=== PATIENT | male | born 1985 | race Caucasian/White ===

== ENCOUNTER 2023-09-16 22:01 | Emergency (ER) | payer OTHER, SELFPAY ==
[2023-09-16 22:04] VITALS: TEMP 36.5
[2023-09-16 23:15] LABS: Basophils Absolute Auto 0.1 K/mm3 (0.0-0.1); Basophils Percent Auto 0.7 % (0.2-1.2); Eosinophils Absolute Auto 0.2 K/mm3 (0-0.3); Eosinophils Percent Auto 2.8 % (0-4.4); Hematocrit 41.3 % (42.0-52.0); Hemoglobin 13.7 g/dL (14.0-18.0); Immature Granulocyte Absolute 0.04 K/mm3 (0.00-0.031); Immature Granulocyte Percent A 0.6 % (0-0.5); Lymphocytes Absolute Auto 2.34 K/mm3 (0.9-3.2); Lymphocytes Percent Auto 34.5 % (18.3-44.2); Mean Corpuscular HGB Conc 33.2 g/dl (32-36); Mean Corpuscular Volume 87.3 fl (80-100); Mean Platelet Volume 11.4 fl (7.4-10.4); Monocytes Absolute Auto 0.9 K/mm3 (0.1-0.6); Neutrophils Absolute Auto 3.3 K/mm3 (1.3-6.7); Neutrophils Percent Auto 48.4 % (45.5-73.1); Platelet Count Result 274 k/mm3 (150-375); Red Blood Count 4.73 M/mm3 (4.6-6.20); Red Cell Distribution Width 12.5 % (11.5-14.5); White Blood Count 6.8 K/mm3 (4.5-10.0)
[2023-09-16 23:25] LABS: Appearance Urine Clear (Clear); Bacteria Urine None Seen /hpf; Bilirubin Urine 1+ (Negative); Blood Urine Negative (Negative); Color Urine Dark Yellow (Yellow); Glucose Urine UA Negative (Negative); Ketones Urine Trace mg/dL (Negative); Leukocyte Esterase Ur Negative LEU/UL (Negative); Nitrate Urine Negative (Negative); Non Pathogenic Casts 0-2; Protein Urine Trace mg/dL (Negative); RBC Urine 0-2 /hpf (0-2); Specific Grav Ur 1.033 (1.001-1.035); Squamous Epithelial Cell Urine None seen /hpf (Few); WBC Urine 0-5 /hpf
[2023-09-16 23:27] LABS: Add Urine Microscopic? YES
--- NOTE | 2023-09-16 23:30 | PC.NURSE ---
Patient resting on bed with eyes closed, visible chest rise and fall noted.
[2023-09-16 23:33] LABS: Alanine Aminotransferase 33 U/L (6-50); Albumin Level 4.3 g/dL (3.5-5.1); Alkaline Phosphatase 87 U/L (38-126); Anion Gap 5 mmol/L (8-16); Aspartate Amino Transferase 41 U/L (17-59); Bilirubin,Total 0.7 mg/dL (0.2-1.3); Blood Urea Nitrogen 23 mg/dL (9-20); Calcium 9.4 mg/dL (8.4-10.2); Carbon Dioxide 26 mmol/L (22-30); Chloride 106 mmol/L (98-107); Estimated CRCL calculation 109 ml/min; Estimated Glomerular Filt Rate > 60; Glucose 131 mg/dL (65-110); Potassium 3.8 mmol/L (3.4-5.0); Sodium 137 mmol/L (137-145)
[2023-09-16 23:34] LABS: Ethanol < 10 mg/dL (<10)
[2023-09-16 23:41] LABS: Barbiturate Screen Urine Negative (Negative); Benzodiazepines Screen Urine Negative (Negative)
[2023-09-16 23:51] LABS: Influenza A QL RT-PCR Negative (Negative); Influenza B QL RT-PCR Negative (Negative); RSV RNA, RT-PCR Negative (Negative); SARS-CoV-2 RNA PCR Negative (Negative)
--- NOTE | 2023-09-16 23:56 | PC.NURSE ---
call placed to [facility]. left message
[2023-09-17 00:01] LABS: Amphetamine Screen Urine Positive (Negative); Cannabinoid Screen Urine Positive (Negative); Cocaine Screen Urine Negative (Negative); Methadone Screen Urine Negative (Negative); Opiate Screen Urine Negative (Negative); Phencyclidine Screen Urine Negative (Negative)
--- NOTE | 2023-09-17 00:27 | ED.GENADULT ---
HPI - General Adult General Chief complaint: Psychiatric Symptoms <Petr Yanez MD - Last Filed: 09/17/23 00:33> Stated complaint: i dont feel safe / people following me <Petr Yanez MD - Last Filed: 09/17/23 00:33> Time Seen by Provider: 09/16/23 22:52 <Petr Yanez MD - Last Filed: 09/17/23 00:33> History of Present Illness HPI narrative: Patient 38-year-old gentleman who presents emergency department with chief complaint of psychiatric complaints. The patient states that he feels as though g 1 0 following him the patient does report that he has used meth in the last 24 hours the patient reports that the symptoms are not improved by anything and nor they worsened by anything. Patient does report that he has had thoughts of harming himself but does not have a specific plan at this time but states he would figure out something <Petr Yanez MD - Last Filed: 09/17/23 00:33> Related Data Home medications: Home Medications Medication Instructions Recorded Confirmed buprenorphine 8 mg-naloxone 2 mg tablet sublingual 09/16/23 sublingual tablet haloperidol 5 mg tablet mg 09/16/23 mirtazapine 30 mg tablet mg 09/16/23 modafinil 200 mg tablet mg 09/16/23 <Petr Yanez MD - Last Filed: 09/17/23 00:33> Allergies/adverse reactions: Allergies Allergy/AdvReac Type Severity Reaction Status Date / Time Penicillins Allergy Unknown Other Verified 09/16/23 22:28 <Petr Yanez MD - Last Filed: 09/17/23 00:33> Review of Systems Review of Systems: A 10 system review of systems was completed on the patient and is negative except for what is stated in the HPI. Nursing and ancillary documentation was reviewed. <Petr Yanez MD - Last Filed: 09/17/23 00:33> FOR[facility]LY [facility] Social History Social History: Social History Substance use type: heroin and amphetamines <Petr Yanez MD - Last Filed: 09/17/23 00:33> Exam Narrative: GENERAL: Well-appearing, well-nourished, and in no acute distress. HEAD: Normocephalic, atraumatic. EYES: PERRLA and EOMI. ENT: Nares clear, no rhinorrhea or epistaxis. Mucous membranes moist. NECK: Supple. CHEST: Clear to auscultation. No respiratory distress. HEART: Regular rate and rhythm. No murmur heard. Normal peripheral pulses. ABDOMEN: Soft, nontender, nondistended, normal active bowel sounds. EXTREMITIES: Normal range of motion. No edema. SKIN: Warm, dry, no rash. NEURO: No focal deficits. Alert and oriented x3. PSYCH: Anxious mood and affect. <Petr Yanez MD - Last Filed: 09/17/23 00:33> Course Course Emergency Course: The patient is admitted to [facility] for psychiatric care. Resting comfortably and eating during my care. <Thor Mercer MD - Last Filed: 09/17/23 09:00> Vital Signs Vital signs: Vital Signs Temperature 97.7 F 09/16/23 22:04 Temperature 97.6 F 09/17/23 07:57 Pulse Rate 86 09/17/23 07:57 Respiratory Rate 19 09/17/23 07:57 Blood Pressure 104/70 09/17/23 07:57 Pulse Oximetry 99 09/17/23 07:57 <Petr Yanez MD - Last Filed: 09/17/23 00:33> Vital Signs Temperature 97.7 F 09/16/23 22:04 Temperature 97.6 F 09/17/23 07:57 Pulse Rate 86 09/17/23 07:57 Respiratory Rate 19 09/17/23 07:57 Blood Pressure 104/70 09/17/23 07:57 Pulse Oximetry 99 09/17/23 07:57 <Thor Mercer MD - Last Filed: 09/17/23 09:00> Medical Decision Making [facility] Narrative Medical decision making narrative: Differential diagnosis includes electrolyte abnormality, psychiatric issues substance induced mood disorder, methamphetamine abuse Patient's drug screen was positive for amphetamines and cannabinoids electrolytes are within normal limits CBCs within normal limits COVID flu and RSV
[2023-09-17 00:39] VITALS: BP 99/57; PULSE 62; RESP 16; TEMP 36.3; O2SAT 100
--- NOTE | 2023-09-17 04:24 | PC.NURSE ---
[id number] Shelia from [facility] calls to get information on patient for possible placement. She requests chart to be sent to [phone].
--- NOTE | 2023-09-17 04:30 | PC.NURSE ---
Patients chart faxed to Shelia at [facility] at [phone].
[2023-09-17 07:57] VITALS: BP 104/70; PULSE 86; RESP 19; TEMP 36.4; O2SAT 99
--- NOTE | 2023-09-17 09:18 | PC.NURSE ---
Pt admit to [facility], accepting doctor is dr. Qureshi and room # 1456, report called to Tori LILLY.
[2023-09-17 11:33] VITALS: BP 102/74; PULSE 82; RESP 17; TEMP 36.6; O2SAT 100
== END 2023-09-17 11:35 ==
PROVIDERS: Emergency Medicine; Emergency Provider Emergency Medicine
DX: F29 Unspecified psychosis not due to a substance or known physiological condition (principal); F15.10 Other stimulant abuse, uncomplicated; Z11.52 Encounter for screening for COVID-19
CPT/HCPCS: 36415; 80053; 80307; 81001; 84443; 85025; 87637; 99285

== ENCOUNTER 2023-10-24 22:59 | Emergency (ER) | payer OTHER, SELFPAY ==
[2023-10-24 23:03] VITALS: BP 146/84; PULSE 123; RESP 20; TEMP 36.9; O2SAT 96
--- NOTE | 2023-10-24 23:45 | ECG_ITS ---
Measurements Intervals [place] Rate: 109 P: 52 CO: 151 QRS: 42 QRSD: 70 T: 27 QT: 303 AVG RR 549 QTc: 367 QTcB 408 QTcF 370 Interpretive Statements SINUS TACHYCARDIA NONSPECIFIC ST & T-WAVE ABNORMALITY ABNORMAL RHYTHM ECG SEE SCANNED COPY FOR SIGNATURE MTDD
[2023-10-25] LABS: Basophils Percent Auto 0.4 % (0.2-1.2); Eosinophils Absolute Auto 0.2 K/mm3 (0-0.3); Eosinophils Percent Auto 1.6 % (0-4.4); Hematocrit 44.4 % (42.0-52.0); Hemoglobin 14.7 g/dL (14.0-18.0); Immature Granulocyte Absolute 0.09 K/mm3 (0.00-0.031); Immature Granulocyte Percent A 0.9 % (0-0.5); Lymphocytes Absolute Auto 2.04 K/mm3 (0.9-3.2); Lymphocytes Percent Auto 21.2 % (18.3-44.2); Mean Corpuscular HGB Conc 33.1 g/dl (32-36); Mean Corpuscular Hemoglobin 29.2 pg (26-34); Mean Corpuscular Volume 88.3 fl (80-100); Mean Platelet Volume 10.9 fl (7.4-10.4); Monocytes Absolute Auto 0.6 K/mm3 (0.1-0.6); Monocytes Percent Auto 6.7 % (2.6-8.5); Neutrophils Absolute Auto 6.7 K/mm3 (1.3-6.7); Neutrophils Percent Auto 69.2 % (45.5-73.1); Platelet Count Result 251 k/mm3 (150-375); Red Blood Count 5.03 M/mm3 (4.6-6.20); Red Cell Distribution Width 13.5 % (11.5-14.5); White Blood Count 9.6 K/mm3 (4.5-10.0)
[2023-10-25 00:11] LABS: Ethanol < 10 mg/dL (<10)
[2023-10-25 00:12] LABS: Alanine Aminotransferase 70 U/L (6-50); Albumin Level 4.9 g/dL (3.5-5.1); Alkaline Phosphatase 71 U/L (38-126); Anion Gap 8 mmol/L (4-12); Aspartate Amino Transferase 43 U/L (17-59); Bilirubin,Total 0.8 mg/dL (0.2-1.3); Blood Urea Nitrogen 16 mg/dL (9-20); Calcium 9.7 mg/dL (8.4-10.2); Carbon Dioxide 26 mmol/L (22-30); Chloride 104 mmol/L (98-107); Estimated CRCL calculation 109 ml/min; Estimated Glomerular Filt Rate > 60; Glucose 105 mg/dL (65-110); Potassium 4.5 mmol/L (3.4-5.0); Sodium 138 mmol/L (137-145)
[2023-10-25 00:13] LABS: Appearance Urine Clear (Clear); Bilirubin Urine Negative (Negative); Blood Urine Negative (Negative); Color Urine Yellow (Yellow); Glucose Urine UA Negative (Negative); Ketones Urine Negative (Negative); Leukocyte Esterase Ur Negative LEU/UL (Negative); Nitrate Urine Negative (Negative); Protein Urine Negative (Negative); Specific Grav Ur 1.011 (1.001-1.035); Urobilinogen Urine 0.2 mg/dL (<2.0)
[2023-10-25 00:17] LABS: Add Urine Microscopic? NO
[2023-10-25 00:28] LABS: Amphetamine Screen Urine Negative (Negative); Barbiturate Screen Urine Negative (Negative); Benzodiazepines Screen Urine Negative (Negative); Cannabinoid Screen Urine Positive (Negative); Cocaine Screen Urine Negative (Negative); Methadone Screen Urine Negative (Negative); Opiate Screen Urine Negative (Negative); Phencyclidine Screen Urine Negative (Negative)
[2023-10-25 00:36] LABS: SARS-CoV-2 RNA PCR Negative (Negative)
--- NOTE | 2023-10-25 00:50 | ED.GENADULT ---
HPI - General Adult General Chief complaint: Psychiatric Symptoms <Petr Yanez MD - Last Filed: 10/25/23 00:52> Stated complaint: I'm having crazy thoughts , SI/HI thoughts <Petr Yanez MD - Last Filed: 10/25/23 00:52> Time Seen by Provider: 10/24/23 23:57 <Petr Yanez MD - Last Filed: 10/25/23 00:52> History of Present Illness HPI narrative: Patient is a 38-year-old gentleman presents emergency department with chief complaint of anxiety and thoughts of harming himself. Patient states that he has been having thoughts to kill himself and reports that he plans on overdosing. The patient reports that he has been hospitalized before in the past for overdoses and reports that he is scared that he would harm himself. <Petr Yanez MD - Last Filed: 10/25/23 00:52> Related Data Home medications: Home Medications Medication Instructions Recorded Confirmed buprenorphine 8 mg-naloxone 2 mg tablet sublingual 09/16/23 sublingual tablet haloperidol 5 mg tablet mg 09/16/23 mirtazapine 30 mg tablet mg 09/16/23 modafinil 200 mg tablet mg 09/16/23 propranolol 20 mg tablet mg 10/24/23 <Petr Yanez MD - Last Filed: 10/25/23 00:52> Allergies/adverse reactions: Allergies Allergy/AdvReac Type Severity Reaction Status Date / Time Penicillins Allergy Unknown Other Verified 10/24/23 23:51 <Petr Yanez MD - Last Filed: 10/25/23 00:52> Review of Systems Review of Systems: A 10 system review of systems was completed on the patient and is negative except for what is stated in the HPI. Nursing and ancillary documentation was reviewed. <Petr Yanez MD - Last Filed: 10/25/23 00:52> ON LICENSE OF [facility] Social History Social History: Social History Substance use type: marijuana <Petr Yanez MD - Last Filed: 10/25/23 00:52> Exam Narrative: GENERAL: Well-appearing, well-nourished, and in no acute distress. HEAD: Normocephalic, atraumatic. EYES: PERRLA and EOMI. ENT: Nares clear, no rhinorrhea or epistaxis. Mucous membranes moist. NECK: Supple. CHEST: Clear to auscultation. No respiratory distress. HEART: Regular rate and rhythm. No murmur heard. Normal peripheral pulses. ABDOMEN: Soft, nontender, nondistended, normal active bowel sounds. EXTREMITIES: Normal range of motion. No edema. SKIN: Warm, dry, no rash. NEURO: No focal deficits. Alert and oriented x3. PSYCH: Depressed mood and affect. <Petr Yanez MD - Last Filed: 10/25/23 00:52> Course Course Emergency Course: patient accepted [facility]. There was a time where he was very agitated and received some oral Xanax. Security and police were present for short amount time. <Thor Mercer MD - Last Filed: 10/25/23 10:28> Vital Signs Vital signs: Vital Signs Temperature 98.5 F 10/24/23 23:03 Pulse Rate 123 H 10/24/23 23:03 Respiratory Rate 20 10/24/23 23:03 Blood Pressure 146/84 H 10/24/23 23:03 Pulse Oximetry 96 10/24/23 23:03 Oxygen Delivery Room Air 10/24/23 23:03 Temperature 98 F 10/25/23 09:51 Pulse Rate 81 10/25/23 09:51 Respiratory Rate 18 10/25/23 09:51 Blood Pressure 130/93 H 10/25/23 09:51 Pulse Oximetry 97 10/25/23 09:51 Oxygen Delivery Room Air 10/24/23 23:03 <Petr Yanez MD - Last Filed: 10/25/23 00:52> Vital Signs Temperature 98.5 F 10/24/23 23:03 Pulse Rate 123 H 10/24/23 23:03 Respiratory Rate 20 10/24/23 23:03 Blood Pressure 146/84 H 10/24/23 23:03 Pulse Oximetry 96 10/24/23 23:03 Oxygen Delivery Room Air 10/24/23 23:03 Temperature 98 F 10/25/23 09:51 Pulse Rate 81 10/25/23 09:51 Respiratory Rate 18 10/25/23 09:51 Blood Pressure 130/93 H 10/25/23 09:51 Pulse Oximetry 97 10/25/23 09:51 Oxygen Delivery Room Air
--- NOTE | 2023-10-25 00:50 | PC.NURSE ---
Pt medically cleared by EDP Dr. Yanez.
[2023-10-25 01:04] LABS: Thyroid Stimulating Hormone Reflex 0.949 uIU/mL (0.465-4.68)
--- NOTE | 2023-10-25 03:10 | PC.NURSE ---
0310: This RN spoke with Jodi in regards to pt being admitted for inpatient psychiatric treatment. During triage pt questions with Jodi the pt hung up on her and states this isn't a psych problem and that it is a drug problem. Jodi states due to this, that will make him involuntary. Dr. Yanez and crisis are notified at this time.
[2023-10-25 06:19] VITALS: BP 117/70; PULSE 82; RESP 18; O2SAT 100
--- NOTE | 2023-10-25 06:43 | PC.NURSE ---
0643: This RN just faxed over pts ED summary to [facility].
--- NOTE | 2023-10-25 07:18 | PC.NURSE ---
breakfast tray ordered for patient
--- NOTE | 2023-10-25 08:10 | PC.NURSE ---
Patient came out of room stating he wanted his shit and he was leaving . This RN explained to the patient that I was unable to get him his belongings and let him leave due to him stating he wanted to harm himself. patient states I feel better and im not going to kill myself. Im leaving . This RN again explained that I could not get his belongings for him to leave. patient states If i have to walk out of this place without my shit I will . Patient then requested to speak with the doctor. Dr Mercer made aware of patient wanting to speak with him.
[2023-10-25] MEDS: ALPRAZolam (*CRX) 0.5 MG TABLET PO (09:17)
[2023-10-25] MEDS: NICOTINE (*PBKC) 14 MG PATCH 1 PATCH TRANSDERM (09:17)
--- NOTE | 2023-10-25 09:46 | PC.NURSE ---
patient accepted to [facility] under Dr Davila @ [id number] Report called to [facility] and spoke with MAXX Luna @ [phone]
[2023-10-25 09:51] VITALS: BP 130/93; PULSE 81; RESP 18; TEMP 36.6; O2SAT 97
== END 2023-10-25 10:24 ==
LOC: ANHED 10-25 00:07
PROVIDERS: Physician Assistant; Emergency Provider Emergency Medicine
DX: R45.851 Suicidal ideations (principal); Z11.52 Encounter for screening for COVID-19; R00.0 Tachycardia, unspecified; R94.31 Abnormal electrocardiogram [ECG] [EKG]
CPT/HCPCS: 36415; 80053; 80307; 81003; 84443; 85025; 87635; 93005; 99285; A9270

== ENCOUNTER 2023-10-30 04:00 | Emergency (ER) | payer OTHER, SELFPAY ==
--- NOTE | ~2023-10-30 | CT_ITS ---
Non-contrast CT scan of the Abdomen and Pelvis Clinical indication: Abdominal pain Technique: 2.5 mm axial scans were obtained through the abdomen and pelvis without intravenous or or al contrast. Dose reduction technique was used on this scan by utilizing automated exposure control a nd iterative reconstruction technique. The dose-length product (DLP) was 467.34 mGy-cm. Findings: Images through the lung bases reveal no abnormalities. There is no evidence of renal or ureteral calculi. The kidneys and the ureters are nondilated. The liver, spleen, pancreas, gallbladder, and adrenals appear normal. There is no aortic aneurysm. There is no evidence of bowel obstruction. Images through the pelvis were performed. There is no evidence of ascites or lymphadenopathy. Urinary bladder unremarkable. No pelvic mass seen. No ascites. Impression: Unremarkable exam. Reviewed, dictated and finalized at [facility]. Impression: Unremarkable exam.
[2023-10-30 04:01] VITALS: BP 117/103; PULSE 86; RESP 18; O2SAT 99
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
[2023-10-30] MEDS: LORazepam INJ (*CRX) 2 MG/ML VIAL IM (05:40)
--- NOTE | 2023-10-30 06:17 | PC.NURSE ---
0605: This RN went to go discharge pt when he states he's not ready to leave yet because he has having hallucinations. Pt is requesting to stay for psych evaluation. Dr. Crump notified.
[2023-10-30 06:21] VITALS: BP 165/80; PULSE 98; RESP 20; O2SAT 100
[2023-10-30 07:22] LABS: Appearance Urine Clear (Clear); Bilirubin Urine Negative (Negative); Blood Urine Negative (Negative); Color Urine Yellow (Yellow); Glucose Urine UA Negative (Negative); Ketones Urine Negative (Negative); Leukocyte Esterase Ur Negative LEU/UL (Negative); Nitrate Urine Negative (Negative); Protein Urine Negative (Negative); Urobilinogen Urine 0.2 mg/dL (<2.0); pH Urine 5.5 (5.0-9.0)
[2023-10-30 07:25] LABS: Basophils Absolute Auto 0.1 K/mm3 (0.0-0.1); Basophils Percent Auto 0.8 % (0.2-1.2); Eosinophils Absolute Auto 0.3 K/mm3 (0-0.3); Eosinophils Percent Auto 5.1 % (0-4.4); Hematocrit 39.5 % (42.0-52.0); Immature Granulocyte Absolute 0.02 K/mm3 (0.00-0.031); Immature Granulocyte Percent A 0.3 % (0-0.5); Lymphocytes Absolute Auto 1.71 K/mm3 (0.9-3.2); Mean Corpuscular HGB Conc 32.9 g/dl (32-36); Mean Corpuscular Volume 88.2 fl (80-100); Monocytes Absolute Auto 0.9 K/mm3 (0.1-0.6); Monocytes Percent Auto 14.2 % (2.6-8.5); Neutrophils Absolute Auto 3.2 K/mm3 (1.3-6.7); Neutrophils Percent Auto 51.6 % (45.5-73.1); Platelet Count Result 211 k/mm3 (150-375); Red Blood Count 4.48 M/mm3 (4.6-6.20); Red Cell Distribution Width 12.7 % (11.5-14.5); White Blood Count 6.1 K/mm3 (4.5-10.0)
[2023-10-30 07:30] LABS: Specific Grav Ur 1.034 (1.001-1.035)
[2023-10-30 07:38] LABS: Barbiturate Screen Urine Negative (Negative); Benzodiazepines Screen Urine Negative (Negative)
[2023-10-30 07:40] LABS: Cannabinoid Screen Urine Negative (Negative); Cocaine Screen Urine Negative (Negative); Methadone Screen Urine Negative (Negative); Opiate Screen Urine Negative (Negative); Phencyclidine Screen Urine Negative (Negative)
[2023-10-30 07:54] LABS: Acetaminophen < 10 ug/mL (10-30); Ethanol < 10 mg/dL (<10); Salicylate < 1.0 mg/dL (2-20)
[2023-10-30 07:55] LABS: Alanine Aminotransferase 44 U/L (6-50); Albumin Level 4.5 g/dL (3.5-5.1); Alkaline Phosphatase 78 U/L (38-126); Anion Gap 6 mmol/L (4-12); Aspartate Amino Transferase 41 U/L (17-59); Bilirubin,Total 0.9 mg/dL (0.2-1.3); Blood Urea Nitrogen 23 mg/dL (9-20); Calcium 8.9 mg/dL (8.4-10.2); Carbon Dioxide 26 mmol/L (22-30); Chloride 104 mmol/L (98-107); Estimated CRCL calculation 138 ml/min; Estimated Glomerular Filt Rate > 60; Glucose 97 mg/dL (65-110); Potassium 3.9 mmol/L (3.4-5.0); Sodium 136 mmol/L (137-145)
[2023-10-30 08:02] LABS: Amphetamine Screen Urine Positive (Negative)
[2023-10-30 08:26] LABS: Thyroid Stimulating Hormone 0.709 uIU/mL (0.465-4.680)
[2023-10-30 09:17] LABS: Influenza A QL RT-PCR Negative (Negative); Influenza B QL RT-PCR Negative (Negative); RSV RNA, RT-PCR Negative (Negative); SARS-CoV-2 RNA PCR Negative (Negative)
[2023-10-30 09:37] LABS: Add Urine Microscopic? NO
[2023-10-30 09:55] VITALS: BP 115/73; PULSE 64; RESP 18; O2SAT 97
== END 2023-10-30 11:40 | disposition home or self-care (01) ==
PROVIDERS: Emergency Medicine; Emergency Provider Student in an Organized Health Care Education/Training Program
DX: S39.91XA Unspecified injury of abdomen, initial encounter (principal); S80.211A Abrasion, right knee, initial encounter; F19.10 Other psychoactive substance abuse, uncomplicated; Z11.52 Encounter for screening for COVID-19; V18.4XXA Pedal cycle driver injured in noncollision transport accident in traffic accident, initial encounter; Y93.55 Activity, bike riding
CPT/HCPCS: 36415; 73562; 74176; 80053; 80307; 81003; 84443; 85025; 87637; 96372; 99284; J2060

== ENCOUNTER 2023-10-31 02:27 | Emergency (ER) | payer OTHER, SELFPAY ==
[2023-10-31 02:34] VITALS: BP 142/68; PULSE 88; RESP 18; TEMP 36.8; O2SAT 99
--- NOTE | 2023-10-31 05:14 | ED.PSYCH ---
HPI - Psych General Chief Complaint: Psychiatric Symptoms Stated Complaint: Demons trying to hurt him, denies si/hi Time Seen by Provider: 10/31/23 04:40 History of Present Illness HPI Narrative: Patient presents here asking to see a therapist, he has no SI or HI, he is homeless and does have history of methamphetamine use. Denies any somatic complaints, he does state that he feels paranoid and thinks that people are often staring at him Related Data Home Medications Medication Instructions Recorded Confirmed buprenorphine 8 mg-naloxone 2 mg tablet sublingual 09/16/23 sublingual tablet haloperidol 5 mg tablet mg 09/16/23 mirtazapine 30 mg tablet mg 09/16/23 modafinil 200 mg tablet mg 09/16/23 propranolol 20 mg tablet mg 10/24/23 Allergies Allergy/AdvReac Type Severity Reaction Status Date / Time Penicillins Allergy Unknown Other Verified 10/24/23 23:51 Review of Systems Review of Systems: CONST: No fever. HEENT: No sore throat C/V: No chest pain RESP: No cough GI: No abdominal pain : No dysuria. M/S: No joint pain. SKIN: No rash. NEURO: [No headache or focal numbness or weakness] PSYCH: Paranoia PMFSH Social History Social History Substance use type: opiates, IV drugs and methamphetamine Exam Narrative: EXAMINATION OF ORGAN SYSTEMS/BODY AREAS: Constitutional: Vital signs per nursing GENERAL:[No acute distress, non-toxic appearing.] HEAD: Normal with no signs of head trauma. EYES: EOMI, conjunctiva normal ENT: Hearing grossly intact LUNGS: Nonlabored breathing. HEART: [Regular rate and rhythm] ABD: No distension EXT: Normal range of motion SKIN: [No rashes or lesions.] NEURO: [Alert and oriented x 3. No gross focal sensory or strength deficits.] PSYCH: Normal affect Course Vital Signs Vital signs: Vital Signs Temperature 98.2 F 10/31/23 02:34 Pulse Rate 88 10/31/23 02:34 Respiratory Rate 18 10/31/23 02:34 Blood Pressure 142/68 H 10/31/23 02:34 Pulse Oximetry 99 10/31/23 02:34 Oxygen Delivery Room Air 10/31/23 02:34 Temperature 98.2 F 10/31/23 02:34 Pulse Rate 88 10/31/23 02:34 Respiratory Rate 18 10/31/23 02:34 Blood Pressure 142/68 H 10/31/23 02:34 Pulse Oximetry 99 10/31/23 02:34 Oxygen Delivery Room Air 10/31/23 02:34 MDM - Psych MDM Narrative Medical decision making narrative: Patient was homeless with history of meth use was recently seen listen 24 hours ago and discharge after being assessed by crisis presents here again stating that he is having delusions/paranoia, no SI or HI. He wants to speak with a therapist. I will offer resources for follow-up to [facility] for mental health and substance use disorder, he is counseled again on avoiding methamphetamine use, he has normal vital signs and is otherwise well appearing and I do feel is stable for discharge at this time. Lab Data 10/31/23 04:56 10/31/23 04:56 Labs: Lab Results 10/31/23 Range/Units 04:56 WBC Cancelled RBC Cancelled Hgb Cancelled Hct Cancelled MCV Cancelled MCH Cancelled MCHC Cancelled RDW Cancelled Plt Count Cancelled MPV Cancelled Immature Gran % (Auto) Cancelled Neut % (Auto) Cancelled Lymph % (Auto) Cancelled [place] % (Auto) Cancelled Eos % (Auto) Cancelled Baso % (Auto) Cancelled Lymph # (Auto) Cancelled [place] # (Auto) Cancelled Eos # (Auto) Cancelled Baso # (Auto) Cancelled Abs Immat Gran (auto) Cancelled Absolute Neuts (auto) Cancelled Absolute Nucleated RBC Cancelled Nucleated RBC % Cancelled % Immature Plt Fraction Cancelled Sodium Cancelled Potassium Cancelled Chloride Cancelled Carbon Dioxide Cancelled Anion Gap Cancelled BUN Cancelled Creatinine Cancelled Estim Creat Clear Calc Cancelled Estimated GFR Cancelled Glucose Cancelle
[2023-10-31] MEDS: hydrOXYzine HCL 25 MG TABLET PO (05:57)
--- NOTE | 2023-10-31 05:58 | PC.NURSE ---
Pt discharged to waiting room and requesting med for anxiety. Spoke with ERP who ordered med. Med given and pt dispo'ed.
== END 2023-10-31 05:59 | disposition home or self-care (01) ==
LOC: ANHED 05:09
PROVIDERS: Emergency Provider Emergency Medicine
DX: F15.10 Other stimulant abuse, uncomplicated (principal); Z20.822 Contact with and (suspected) exposure to COVID-19; Z59.02 Unsheltered homelessness
CPT/HCPCS: 36415; 99281; 99283; A9270

== ENCOUNTER 2023-10-31 23:05 | Emergency (ER) | payer OTHER, SELFPAY ==
[2023-10-31 23:05] VITALS: BP 144/104; PULSE 74; RESP 21; TEMP 36.4; O2SAT 97
--- NOTE | 2023-10-31 23:25 | ED.GENADULT ---
HPI - General Adult General Chief complaint: Psychiatric Symptoms Stated complaint: bad anxiety Time Seen by Provider: 10/31/23 23:22 History of Present Illness HPI narrative: This is a 38-year-old with methamphetamine abuse and homeless presenting for anxiety. Patient says he feels like he has things crawling all his body. He feels like someone is out to get him. Patient is a known meth user. Patient has been seen in our hospital multiple times over the last several days with a psychiatric admission 6 days ago. He was then discharged immediately return emergency department for more meth related complaints. Patient says he has thoughts of harming himself has no definitive plan. No homicidal ideation. Positive meth use. Patient was seen here last night and became verbally aggressive with staff and had to be escorted out by secure Related Data Home Medications Medication Instructions Recorded Confirmed buprenorphine 8 mg-naloxone 2 mg tablet sublingual 09/16/23 sublingual tablet haloperidol 5 mg tablet mg 09/16/23 mirtazapine 30 mg tablet mg 09/16/23 modafinil 200 mg tablet mg 09/16/23 propranolol 20 mg tablet mg 10/24/23 Allergies Allergy/AdvReac Type Severity Reaction Status Date / Time Penicillins Allergy Unknown Other Verified 10/24/23 23:51 [facility] Past Medical History Medical History Methamphetamine abuse Social History Social History Substance use type: opiates, IV drugs and methamphetamine Exam Narrative: APPEARANCE: No apparent distress. Patient is speaking quickly, he cannot sit still Head: atraumatic. EYES: EOMI, NOSE: Atraumatic NECK: Trachea midline RESPIRATORY: No increased rate of breathing CTAB CARDIOVASCULAR: RRR, ABDOMINAL: Non-distended MUSCULOSKELETAl: No obvious deformities NEURO: Alert. Moving 4/4 extremities SKIN:: Warm, dry. Normal color PSYCHIATRIC: Normal affect Course Vital Signs Vital signs: Vital Signs Temperature 97.5 F L 10/31/23 23:05 Pulse Rate 74 10/31/23 23:05 Respiratory Rate 21 H 10/31/23 23:05 Blood Pressure 144/104 H 10/31/23 23:05 Pulse Oximetry 97 10/31/23 23:05 Oxygen Delivery Room Air 10/31/23 23:05 Temperature 97.5 F L 10/31/23 23:05 Pulse Rate 74 10/31/23 23:05 Respiratory Rate 21 H 10/31/23 23:05 Blood Pressure 144/104 H 10/31/23 23:05 Pulse Oximetry 97 10/31/23 23:05 Oxygen Delivery Room Air 10/31/23 23:05 Medical Decision Making MDM Narrative Medical decision making narrative: -Course: 38-year-old male history of homelessness and amphetamine abuse presenting for increased anxiety. This is directly related to his methamphetamine use. Patient was admitted to an inpatient psychiatric unit 6 days ago and then left because he said the people there were too crazy. patient has vague mentions of self-harm but no clear plan and he appears well versed in the psychiatric medical evaluation. The patient's repeated presentations the ER are more related to his meth use and homelessness as opposed to true suicidality. Patient has been given multiple resources for appropriate follow-up. Patient will be discharged. -DDX includes but is not limited to: Homelessness, amphetamine use disorder, drug induced paranoia, malingering, secondary gain. -Co-morbidities complicating care: homeless, amphetamine -Social determinants of health: homeless, unemployed methamphetamine abuse -External Chart Review: review of multiple ER presentations for meth related complaints -Shared decision making / Disposition: Discharged Vital Signs Vital Signs: Vital Signs Temperature 97.5 F L 10/31/23 23:05 Pulse Rate 74 10/31/23 23:05 Respiratory Rate 21 H 10/31/23 23:05 Blood Pressure 144/104 H 10/31/23 23:05 Pulse Oximetry 97 10/31/23 23:05 Oxygen Delivery Room Air 10/31/23 23:05 Temp
[2023-10-31 23:33] VITALS: BP 144/104; PULSE 74; RESP 21; TEMP 36.4; O2SAT 97
== END 2023-10-31 23:45 | disposition home or self-care (01) ==
PROVIDERS: Emergency Provider Emergency Medicine
DX: F15.10 Other stimulant abuse, uncomplicated (principal); Z59.02 Unsheltered homelessness
CPT/HCPCS: 99281